=== PATIENT | male | born 1985 | race Caucasian/White ===

== ENCOUNTER 2017-02-22 08:22 | Emergency (ER) | payer BC ==
[~2017-02-22] VITALS: Wt 93.6 kg
[2017-02-22] MEDS ORDERED: EPIPEN 2-PAK1 MG/ML MR (10:37)
[2017-02-22 10:59] VITALS: BP 128/85
== END 2017-02-22 10:52 | disposition home or self-care (01) ==
LOC: ED 08:22
DX: T78.2XXA Anaphylactic shock, unspecified, initial encounter (principal); R55 Syncope and collapse; I95.9 Hypotension, unspecified
CPT/HCPCS: J0171; J2920; J7030

== ENCOUNTER 2024-02-29 12:34 | Emergency (ER) | payer BC ==
[~2024-02-29 12:34] MED LIST: EPIPEN 2-PAK1 MG/ML MR
== END 2024-02-29 15:35 | disposition home or self-care (01) ==
LOC: ED 12:34
DX: R00.2 Palpitations (principal)

== ENCOUNTER → 2024-05-02 | Outpatient (CLI) | payer BC | LOC: LAB 09:46 | DX: Z13.1 Encounter for screening for diabetes mellitus (principal); E78.2 Mixed hyperlipidemia ==

== ENCOUNTER → 2024-08-23 | Outpatient (CLI) | payer BC | LOC: RAD 08:24 | DX: J98.11 Atelectasis (principal) ==

== ENCOUNTER → 2024-08-25 | Outpatient (CLI) | payer BC ==
[~2024-08-25] MED LIST changes: +Iohexol 300 - 100 ML VIAL IV ONE
[2024-08-25 08:57] LABS: BASO # 0.02 K/mm3 (0.02-0.10); EOS # 0.04 K/mm3 (0.04-0.40); EOS % 0.5 % (0.0-4.0); HEMATOCRIT 42.4 % (42.0-52.0); MEAN CELL VOLUME 93 fl (78-100); MEAN CORPUSCULAR HEMOGLOBIN 31 pg (27-31); MEAN CORPUSCULAR HGB CONC 33 g/dL (33-37); MEAN PLATELET VOLUME 10.3 fl (7.4-10.4); MONO # 0.58 K/mm3 (0.20-0.80); NEU # 6.19 K/mm3 (1.40-6.50); PLATELET COUNT 220 K/mm3 (130-400); RED BLOOD COUNT 4.55 M/mm3 (4.20-5.60); RED CELL DISTRIBUTION WIDTH 12.5 % (11.5-14.5); WHITE BLOOD COUNT 8.1 K/mm3 (4.8-10.8)
[2024-08-25 09:07] LABS: CALCIUM 9.8 mg/dL (8.3-10.5)
[2024-08-25 09:08] LABS: TOTAL PROTEIN 7.7 g/dL (6.4-8.3)
[2024-08-25 09:10] LABS: TOTAL BILIRUBIN 0.9 mg/dL (0.2-1.2)
[2024-08-25 09:28] LABS: URINE APPEARANCE CLEAR (CLEAR); URINE BILIRUBIN NEGATIVE (NEGATIVE); URINE BLOOD NEGATIVE (NEGATIVE); URINE COLOR YELLOW (YELLOW); URINE GLUCOSE NEGATIVE (NEGATIVE); URINE KETONE NEGATIVE (NEGATIVE); URINE LEUKOCYTE ESTERASE NEGATIVE (NEGATIVE); URINE MUCUS PRESENT (NOT PRESENT); URINE NITRATE NEGATIVE (NEGATIVE); URINE PROTEIN(semi-quant) 1+ (NEGATIVE); URINE WBC 0-1 /hpf (0-3)
== END ==
LOC: LAB 08:39 → RAD 08:39
PROVIDERS: Family Medicine
DX: J90 Pleural effusion, not elsewhere classified (principal)
CPT/HCPCS: Q9967

== ENCOUNTER → 2024-08-26 | Outpatient (CLI) | payer BC ==
[~2024-08-26] MED LIST changes: -Iohexol 300 - 100 ML VIAL IV ONE
== END ==
LOC: RAD 11:04
DX: I26.99 Other pulmonary embolism without acute cor pulmonale (principal)

== ENCOUNTER → 2024-09-01 | Outpatient (CLI) | payer BC | LOC: RAD 10:11 | DX: I26.99 Other pulmonary embolism without acute cor pulmonale (principal) ==

== ENCOUNTER → 2024-09-10 | Outpatient (CLI) | payer BC | LOC: RAD 07:16 | DX: I26.99 Other pulmonary embolism without acute cor pulmonale (principal) ==